=== PATIENT | male | born 1995 ===

== ENCOUNTER 2016-08-13 14:41 | Emergency (ER) | payer OTHER, BC ==
--- NOTE | 2016-08-13 16:23 | EDPHY ---
H & P Time Seen by Provider: 08/13/16 15:30 HPI/ROS: CHIEF COMPLAINT: Paresthesias HISTORY OF PRESENT ILLNESS: 21-year-old male presents with a extremity paresthesias. Yesterday afternoon he was sitting on a stool. When he placed his right foot on the ground, he developed shooting pain in his right calf. This was followed by a feeling of "excessive blood" in all of his extremities. The sensation involves both of his arms from the elbows down and both of his legs from the knees down. He denies tingling or weakness. He has a history of intermittent neck discomfort, no neck pain or recent injury now. No recent illness or fever. REVIEW OF SYSTEMS: Constitutional: No fever, no recent illness Eyes: No visual changes ENT: No sore throat Respiratory: No cough, no shortness of breath Cardiac: No chest pain Gastrointestinal: No nausea, no vomiting Musculoskeletal: No leg swelling Skin: No rash Neurological: no weakness Psychiatric: [place] anxious prior to arrival Past Medical/Surgical History: Lumbar surgery Social History: [employer] student Smoking Status: Former smoker Physical Exam: General Appearance: Alert, pleasant Eyes: Pupils equal and round ENT, Mouth: Mucous membranes moist Neck: Normal inspection, nontender, range of motion without pain Neurological: Alert, oriented, motor 5/5, sensory intact to light touch, decreased reflexes throughout, normal gait Skin: Warm and dry Extremities: normal inspection Psychiatric: Mood and affect normal Constitutional: Initial Vital Signs Temperature (C) 36.7 C 08/13/16 15:01 Heart Rate 64 08/13/16 15:01 Respiratory Rate 18 08/13/16 15:01 Blood Pressure 135/74 H 08/13/16 15:01 O2 Sat (%) 97 08/13/16 15:01 O2 Delivery Mode Room Air Allergies/Adverse Reactions: No Known Allergies Allergy (Unverified 08/13/16 15:01) Home Medications: Medication Instructions Recorded NK [No Known Home Meds] 08/13/16 Medical Decision Making - Diagnostics Imaging: MRI of the cervical spine read by the radiologist is normal. ED Course/Re-evaluation: I spoke with this patient's mom, who is a neurosurgeon. She requests that he have an MRI of the cervical spine. He has a history of a spinal disorder and early disc disease. MRI results discussed with the patient. Will follow up with Neurology later this week for further evaluation. Differential Diagnosis: Differential diagnosis includes does not limited to disc herniation, Guillain- [place] syndrome, hypo in a tree me a, hypoglycemia, cauda equina syndrome. - Data Points Laboratory Results: Laboratory Results 08/13/16 17:15 08/13/16 17:15 Departure - Departure Disposition: Home, Routine, Self-Care Clinical Impression: Paresthesias Condition: Good Instructions: Paresthesia (ED) Additional Instructions: Return for worsening symptoms or any concerns. Referrals: Pawel Jacobson MD [Medical Doctor] - 2-3 days, if not improved
[2016-08-13 17:36] LABS: % IMMATURE GRANULYOCYTES 0.3 % (0.0-1.1); ABSOLUTE IMMATURE GRANULOCYTES 0.02 10^3/uL (0.00-0.10); ADD DIFF? NO; ADD MORPH? NO; ADD SCAN? NO; ATYPICAL LYMPHOCYTE FLAG 0 (0-99); FRAGMENT RBC FLAG 0 (0-99); HEMATOCRIT 41.6 % (40.0-51.0); HEMOGLOBIN 14.6 g/dL (13.7-17.5); LEFT SHIFT FLG 0 (0-99); LIPEMIA HEMOLYSIS FLAG 90 (0-99); MEAN CELL HEMOGLOBIN 30.4 pg (27.9-34.1); MEAN CELL HEMOGLOBIN CONCENTR. 35.1 g/dL (32.4-36.7); MEAN CELL VOLUME 86.7 fL (81.5-99.8); PLATELET CLUMPS FLAG 10 (0-99); PLATELET COUNT 224 10^3/uL (150-400); RED CELL DISTRIBUTION WIDTH 11.9 % (11.5-15.2)
[2016-08-13 17:51] LABS: ANION GAP 10 mEq/L (8-16); CALCIUM 9.6 mg/dL (8.5-10.4); CARBON DIOXIDE 24 mEq/l (22-31); CHLORIDE 105 mEq/L (97-110); CREATININE 0.8 mg/dL (0.7-1.3); GLOMERULAR FILTRATION RATE > 60; GLUCOSE 83 mg/dL (70-100); POTASSIUM 4.4 mEq/L (3.5-5.2); SODIUM 139 mEq/L (134-144)
[2016-08-13 20:08] VITALS: BP 130/72; PULSE 68; RESP 17; TEMP 99.1; O2SAT 95
== END 2016-08-13 20:06 | disposition home or self-care (01) ==
DX: R20.2 Paresthesia of skin (principal); Z87.891 Personal history of nicotine dependence